=== PATIENT | female | born 1970 | race Caucasian/White ===

== ENCOUNTER 2020-12-29 22:31 | Emergency (ER) | payer SELFPAY ==
[~2020-12-29] VITALS: Ht 167.6 cm; Wt 72.6 kg
[2020-12-29 22:31] VITALS: BP 125/78
--- NOTE | 2020-12-29 22:52 | NUR ---
PT TAKEN TO XRAY
--- NOTE | 2020-12-30 00:31 | NUR ---
PT TAKEN TO BED 11
[2020-12-30 00:36] VITALS: BP 125/78
--- NOTE | 2020-12-30 00:38 | NUR ---
LT KNEE PAIN S/P FALL AT 1300. +LT KNEE SWELLING NOTED. NO REDNESS OR BURSING NOTED. DENIES ANY NUMBNESS OR TINGLING. A&OX4. GCS 15. SKIN WNL. RESP E/U. 02/27 PAIN. NO OBVIOUS DEFORMITY NOTED. W/C ASSIST TO THE BED. CMS INTACT WITH LIMITED MOTOR MOVEMENT TO LEFT LEG D/T PAIN. MEHDX- DENIES NKA
--- NOTE | 2020-12-30 01:04 | NUR ---
GEOFF SCHNEIDER PERFORMING ASSESSMENT.
[2020-12-30] MEDS ORDERED: NAPR-54 PO (01:19)
--- NOTE | 2020-12-30 02:05 | NUR ---
Patient discharged with v/s stable. Written and verbal after care instructions given and explained. Patient alert, oriented and verbalized understanding of instructions. Ambulatory with steady gait WITH CRUTCH ASSIST. All questions addressed prior to discharge. ID band removed. Patient advised to follow up with PMD. Rx of NAPROSYN given. Patient educated on indication of medication including possible reaction and side effects. Opportunity to ask questions provided and answered.
== END 2020-12-30 02:05 | disposition home or self-care (01) ==
LOC: MED 22:31
DX: M25.562 Pain in left knee (principal); W19.XXXA Unspecified fall, initial encounter; Y93.89 Activity, other specified; Y92.89 Other specified places as the place of occurrence of the external cause; Y99.8 Other external cause status
CPT/HCPCS: 29505; 73562; 99283

== ENCOUNTER 2021-10-26 12:50 | Emergency (ER) | payer SELFPAY ==
[~2021-10-26] VITALS: Ht 167.6 cm; Wt 120.7 kg
[~2021-10-26 12:50] MED LIST: NAPR-54 PO
[2021-10-26 13:15] VITALS: BP 180/72
--- NOTE | 2021-10-26 13:20 | NUR ---
51 Y/O FEMALE BIB SELF C/O BILATERAL LOWER EXTREMITY PAIN. PT STATES SHE HAD BLISTERS WHICH POPPED OVER THE R ANTERIOR LEG. BLISTERS BEGAN TO GROW IN SIZE AND GRADUALLY GOT MORE PAINFUL. PT DENIES ANY AGGREVATING OR ALLEVIATING FACTORS. PT DENIES FEVER OR CHILLS. PT DENIES CHEST PAIN OR SOB.
--- NOTE | 2021-10-26 13:51 | NUR ---
PT AMBULATED TO ER BED 6
--- NOTE | 2021-10-26 14:28 | NUR ---
DR ADAMS AT BEDSIDE EVALUATING PT
[2021-10-26] MEDS ORDERED: CEPH-588 PO (14:42)
[2021-10-26] MEDS ORDERED: [UNRECOGNIZED DRUG - CODE] TP (14:42)
[2021-10-26] MEDS ORDERED: ACET-10509 PO (14:42)
[2021-10-26] MEDS ORDERED: IBUP-2213 PO (14:42)
[2021-10-26] MEDS ORDERED: BACITRACIN OINT 500 UNITS/GM PKT TP ONE ×2 (15:09→15:10)
--- NOTE | 2021-10-26 15:24 | NUR ---
PT R ANTERIOR LOWER LEG DRESSED AND BANDAGED. PT ALSO REQUESTED FOR L ANTERIOR LOWER LEG TO BE DRESSED AND BANDAGED WELL. PT TOLERATED DRESSING/ BANDAGE. + CMS AFTER APPLICATION.
--- NOTE | 2021-10-26 15:35 | NUR ---
Patient discharged with v/s stable. Written and verbal after care instructions given and explained. Patient alert, oriented and verbalized understanding of instructions. Ambulatory with steady gait. All questions addressed prior to discharge. ID band removed. Patient advised to follow up with PMD. Rx of TYLENOL, BACITRACIN, KEFLEX, IBUPROFEN given. Patient educated on indication of medication including possible reaction and side effects. Opportunity to ask questions provided and answered.
[2021-10-26 16:30] VITALS: BP 141/78
== END 2021-10-26 15:35 | disposition home or self-care (01) ==
LOC: MED 12:50
DX: L03.116 Cellulitis of left lower limb (principal); L03.115 Cellulitis of right lower limb; L97.829 Non-pressure chronic ulcer of other part of left lower leg with unspecified severity; L97.819 Non-pressure chronic ulcer of other part of right lower leg with unspecified severity; Z79.899 Other long term (current) drug therapy
CPT/HCPCS: 99282